=== PATIENT | female | born 1955 | race Caucasian/White ===

== ENCOUNTER 2018-09-21 17:58 | Inpatient (IN) | payer MEDICARE, OTHER ==
[~2018-09-21] VITALS: Ht 167.6 cm; Wt 90.8 kg
[~2018-09-21 17:58] MED LIST: ALBUTEROL INHALER; ASPI81TA45 PO; CARV3.122 PO; CEFD300C37 PO; DOXY100C15 PO; DOXY100T PO; ETOMIDATE 20 MG/10 ML ONE; FURO20TA3 PO; IPRA3AMP30 NPPB; LISI2.5T PO; METH4TAB2 PO; MIDAZOLAM 1 MG/ML, 5ML ONE; PRED10TA PO; SIMV20TA3 PO; SPIR25TA5 PO; SUCCINYLCHOLINE 20 MG/ML, 10ML ONE; TIOT18CA INH; VECURONIUM 10 MG ONE
[2018-09-21] MEDS ORDERED: SODIUM CHLORIDE FLUSH 10ML SYR IVF ONE (18:30)
[2018-09-21] MEDS ORDERED: methylPREDNISolone SOD SUCC 125 MG/2 ML IVP ONE (18:30)
[2018-09-21] MEDS ORDERED: methylPREDNISolone SOD SUCC 125 MG/2 ML ONE (18:34)
[2018-09-21] MEDS ORDERED: ALBUTEROL SULFATE 2.5 MG/3 ML ONE (18:36)
[2018-09-21 18:46] LABS: BASOPHILS % (AUTO) 0 % (0-1); EOSINOPHILS # (AUTO) 0.19 x10^3/uL (0-0.4); EOSINOPHILS % (AUTO) 2 % (1-7); LYMPHOCYTES # (AUTO) 0.74 x10^3/uL (1-3.4); LYMPHOCYTES % (AUTO) 8 % (22-44); MD NO; MEAN CORPUSCULAR HGB CONC 31.7 g/dL (32.4-35.8); MEAN CORPUSCULAR VOLUME 91.4 fL (80-100); MEAN PLATELET VOLUME 8.7 fL (7.4-10.4); MONOCYTES # (AUTO) 1.01 x10^3/uL (0.2-0.8); MONOCYTES % (AUTO) 11 % (2-9); NEUTROPHILS # (AUTO) 7.35 x10^3/uL (1.8-6.8); NEUTROPHILS % (AUTO) 79 % (42-75); PLATELET COUNT 245 x10^3/uL (130-400); RED BLOOD COUNT 3.68 x10^6/uL (3.82-5.3)
[2018-09-21 18:53] LABS: ALBUMIN 2.5 g/dL (3.4-5.0); CALCIUM 8.8 mg/dL (8.5-10.1); CHLORIDE 93 mmol/L (98-107); INTERNATIONAL NORMALIZED RATIO 0.94 (0.93-1.1)
[2018-09-21] MEDS ORDERED: ALBUTEROL SULFATE 2.5 MG/3 ML NPPB PRN (19:00)
[2018-09-21] MEDS ORDERED: AZITHROMYCIN 500 MG in SODIUM CHLORIDE 0.9% 250 ML IVPB ONE (19:00)
[2018-09-21 19:04] LABS: ANION GAP 4 mmol/L (5-15)
[2018-09-21] MEDS ORDERED: CEFTRIAXONE PMX 1GM/50ML 50 ML ONE (19:09)
[2018-09-21 19:16] LABS: CREATININE 0.63 mg/dL (0.55-1.02); TROPONIN I < 0.015 ng/mL (0.000-0.045)
[2018-09-21] MEDS ORDERED: SODIUM CHLORIDE FLUSH 10ML SYR IVF PRN (19:30)
[2018-09-21] MEDS ORDERED: CEFTRIAXONE PMX 1GM/50ML 50 ML IV SCH (19:30)
[2018-09-21] MEDS ORDERED: ACETAMINOPHEN 325 MG TABLET PO PRN (20:00)
[2018-09-21] MEDS ORDERED: BISACODYL 10 MG SUPP PR PRN (20:00)
[2018-09-21] MEDS ORDERED: NICOTINE 14MG/24 HR PATCH.TD24 TD SCH (20:00)
[2018-09-21] MEDS: metFORMIN 500 MG TABLET PO SCH (20:00)
[2018-09-21] MEDS ORDERED: ONDANSETRON ODT 4 MG PO PRN (20:00)
[2018-09-21 20:47] LABS: HEMOGLOBIN A1C 6.7 % (4.2-6.3)
[2018-09-21] MEDS ORDERED: INSULIN LISPRO 100 UNITS/ML, PEN SQ-INSULIN SCH (21:00)
[2018-09-21] MEDS ORDERED: CARVEDILOL 3.125 MG TABLET PO SCH (21:00)
[2018-09-21] MEDS: SIMVASTATIN 20 MG TABLET PO SCH (21:51)
[2018-09-21] MEDS: SODIUM CHLORIDE FLUSH 10ML SYR IVF SCH (21:52)
[2018-09-21] MEDS: HEPARIN 5,000 UNITS/ML, 1ML SQ SCH (21:52)
[2018-09-21] MEDS ORDERED: PROPOFOL 100 ML IV ONE (22:01)
[2018-09-21] MEDS ORDERED: FENTANYL PF 100 MCG/2ML ONE (22:07)
[2018-09-21] MEDS ORDERED: VECURONIUM 10 MG ONE (22:14)
[2018-09-21] MEDS: DOXYCYCLINE 100 MG in DEXTROSE 5% 250 ML IV SCH (22:59)
[2018-09-22] VITALS: BP 107/62
[2018-09-22] MEDS: IPRATROPIUM 0.5 MG/2.5 ML INHA HHN SCH ×2 (00:26→02:10)
[2018-09-22] MEDS: methylPREDNISolone SOD SUCC 125 MG/2 ML IVPush SCH ×4 (00:46→17:39)
[2018-09-22] MEDS ORDERED: methylPREDNISolone SOD SUCC 125 MG/2 ML IVPush ONE (02:00)
[2018-09-22] MEDS ORDERED: SODIUM CHLORIDE 0.9% 1,000ML IVBOLUS ONE ×2 (02:00)
[2018-09-22] MEDS ORDERED: ALBUMIN HUMAN 25% 100 ML IV ONE (02:00)
[2018-09-22 03:58] LABS: MICROSCOPIC INDICATED
[2018-09-22 04:08] LABS: AMPHETAMINE SCREEN, URINE Positive (Negative); BARBITURATE SCREEN, URINE Negative (Negative); BENZODIAZEPINE SCREEN, URINE Positive (Negative); CANNABINOID SCREEN, URINE Positive (Negative); COCAINE SCREEN, URINE Negative (Negative); METHADONE SCREEN, URINE Negative (Negative); OPIATE SCREEN, URINE Negative (Negative)
[2018-09-22 04:16] LABS: RAPID INFLUENZA A Negative (Negative); RAPID INFLUENZA B Negative (Negative)
[2018-09-22] MEDS: HEPARIN 5,000 UNITS/ML, 1ML SQ SCH (05:07)
[2018-09-22] MEDS: ASPIRIN 81 MG TABLET EC PO SCH (05:08)
[2018-09-22] MEDS: PROPOFOL 100 ML IV PRN ×3 (05:11→17:39)
[2018-09-22] MEDS ORDERED: INSULIN LISPRO 100 UNITS/ML, PEN SQ-INSULIN SCH (06:00)
[2018-09-22 06:16] LABS: BASOPHILS # (AUTO) 0.01 x10^3/uL (0-0.1); BASOPHILS % (AUTO) 0 % (0-1); EOSINOPHILS % (AUTO) 0 % (1-7); LYMPHOCYTES % (AUTO) 5 % (22-44); MD NO; MEAN CORPUSCULAR HEMOGLOBIN 29.3 pg (27.0-34.8); MEAN CORPUSCULAR HGB CONC 32.4 g/dL (32.4-35.8); MEAN CORPUSCULAR VOLUME 90.4 fL (80-100); MEAN PLATELET VOLUME 8.7 fL (7.4-10.4); MONOCYTES # (AUTO) 0.14 x10^3/uL (0.2-0.8); MONOCYTES % (AUTO) 2 % (2-9); NEUTROPHILS # (AUTO) 5.59 x10^3/uL (1.8-6.8); NEUTROPHILS % (AUTO) 93 % (42-75); PLATELET COUNT 215 x10^3/uL (130-400); RED BLOOD COUNT 3.35 x10^6/uL (3.82-5.3)
[2018-09-22] MEDS ORDERED: ALBUTEROL/IPRATROPIUM 2.5MG/0.5MG, 3 ML ONE (06:21)
[2018-09-22 06:28] LABS: ALANINE AMINOTRANSFERASE 17 U/L (12-78); ALBUMIN 2.5 g/dL (3.4-5.0); ANION GAP 6 mmol/L (5-15); CALCIUM 8.6 mg/dL (8.5-10.1); CHLORIDE 97 mmol/L (98-107); CREATININE 0.72 mg/dL (0.55-1.02)
[2018-09-22] MEDS: ALBUTEROL/IPRATROPIUM 2.5MG/0.5MG, 3 ML NPPB SCH ×5 (06:28→22:10)
[2018-09-22 06:30] LABS: ALKALINE PHOSPHATASE 82 U/L (45-117); BILIRUBIN,TOTAL 0.3 mg/dL (0.2-1.0); TOTAL PROTEIN 6.3 g/dL (6.4-8.2); TRIGLYCERIDES 57 mg/dL (50-200)
[2018-09-22 06:34] LABS: TROPONIN I < 0.015 ng/mL (0.000-0.045)
[2018-09-22] MEDS ORDERED: SPIRONOLACTONE 25 MG TABLET PO SCH (09:00)
[2018-09-22] MEDS ORDERED: FUROSEMIDE 20 MG/2 ML IV ONE (09:00)
[2018-09-22] MEDS: SODIUM CHLORIDE FLUSH 10ML SYR IVF SCH ×2 (09:00→21:20)
[2018-09-22] MEDS: INSULIN LISPRO 100 UNITS/ML, PEN SQ-INSULIN SCH ×4 (10:50→21:21)
[2018-09-22] MEDS: metFORMIN 500 MG TABLET PO SCH ×2 (10:50→21:19)
[2018-09-22] MEDS: SENNA/DOCUSATE TABLET PO SCH (10:50)
[2018-09-22] MEDS: INSULIN GLARGINE 100 UNITS/ML, PEN SQ-INSULIN SCH ×2 (10:51→21:22)
[2018-09-22] MEDS: DOXYCYCLINE 100 MG in DEXTROSE 5% 250 ML IV SCH ×2 (10:53→19:44)
[2018-09-22] MEDS: CEFTRIAXONE PMX 1GM/50ML 50 ML IV SCH (19:44)
[2018-09-22] MEDS: SIMVASTATIN 20 MG TABLET PO SCH (21:20)
[2018-09-23] MEDS: methylPREDNISolone SOD SUCC 125 MG/2 ML IVPush SCH ×4 (01:08→16:39)
[2018-09-23] MEDS: ALBUTEROL/IPRATROPIUM 2.5MG/0.5MG, 3 ML NPPB SCH ×6 (02:25→22:20)
[2018-09-23] MEDS: INSULIN LISPRO 100 UNITS/ML, PEN SQ-INSULIN SCH ×4 (02:57→22:10)
[2018-09-23] MEDS: PROPOFOL 100 ML IV PRN (03:35)
[2018-09-23] MEDS: ASPIRIN 81 MG TABLET EC PO SCH (05:16)
[2018-09-23 05:30] VITALS: BP 110/65
[2018-09-23 06:28] LABS: ALANINE AMINOTRANSFERASE 13 U/L (12-78); ALBUMIN 2.3 g/dL (3.4-5.0); ANION GAP 8 mmol/L (5-15); CALCIUM 8.9 mg/dL (8.5-10.1); CHLORIDE 98 mmol/L (98-107); CREATININE 0.94 mg/dL (0.55-1.02)
[2018-09-23 06:29] LABS: ALKALINE PHOSPHATASE 74 U/L (45-117); BILIRUBIN,TOTAL 0.3 mg/dL (0.2-1.0); TOTAL PROTEIN 6.1 g/dL (6.4-8.2)
[2018-09-23] MEDS: DOXYCYCLINE 100 MG in DEXTROSE 5% 250 ML IV SCH ×2 (08:40→22:09)
[2018-09-23] MEDS: SENNA/DOCUSATE TABLET PO SCH (09:02)
[2018-09-23] MEDS: metFORMIN 500 MG TABLET PO SCH ×2 (09:02→22:09)
[2018-09-23] MEDS: INSULIN GLARGINE 100 UNITS/ML, PEN SQ-INSULIN SCH ×2 (09:02→22:11)
[2018-09-23] MEDS: RISPERIDONE 1 MG TABLET PO SCH ×2 (09:05→22:10)
[2018-09-23] MEDS: SODIUM CHLORIDE FLUSH 10ML SYR IVF SCH ×2 (11:19→22:09)
[2018-09-23] MEDS: POTASSIUM CHLORIDE 10% 40 MEQ/30 ML UDC PO SCH ×2 (16:39→22:10)
[2018-09-23] MEDS: FUROSEMIDE 20 MG/2 ML IV SCH (16:39)
[2018-09-23] MEDS ORDERED: POTASSIUM CHLORIDE 20 MEQ TAB.ER.PRT PO SCH (17:00)
[2018-09-23] MEDS: CEFTRIAXONE PMX 1GM/50ML 50 ML IV SCH (19:22)
[2018-09-23] MEDS: SIMVASTATIN 20 MG TABLET PO SCH (22:09)
[2018-09-24] MEDS: methylPREDNISolone SOD SUCC 125 MG/2 ML IVPush SCH ×4 (01:38→20:53)
[2018-09-24] MEDS: ALBUTEROL/IPRATROPIUM 2.5MG/0.5MG, 3 ML NPPB SCH ×6 (02:25→22:27)
[2018-09-24] MEDS: INSULIN LISPRO 100 UNITS/ML, PEN SQ-INSULIN SCH ×4 (03:17→21:00)
[2018-09-24 04:36] VITALS: BP 97/53
[2018-09-24] MEDS: MIDAZOLAM HCL 50 MG in SODIUM CHLORIDE 0.9% 240 ML IV PRN ×2 (04:48→17:18)
[2018-09-24 05:27] LABS: BASOPHILS % (AUTO) 0 % (0-1); EOSINOPHILS # (AUTO) 0.03 x10^3/uL (0-0.4); EOSINOPHILS % (AUTO) 1 % (1-7); LYMPHOCYTES # (AUTO) 0.46 x10^3/uL (1-3.4); LYMPHOCYTES % (AUTO) 7 % (22-44); MD NO; MEAN CORPUSCULAR HEMOGLOBIN 29.3 pg (27.0-34.8); MEAN CORPUSCULAR HGB CONC 32.7 g/dL (32.4-35.8); MEAN CORPUSCULAR VOLUME 89.6 fL (80-100); MEAN PLATELET VOLUME 8.3 fL (7.4-10.4); MONOCYTES # (AUTO) 0.55 x10^3/uL (0.2-0.8); MONOCYTES % (AUTO) 8 % (2-9); NEUTROPHILS # (AUTO) 5.99 x10^3/uL (1.8-6.8); NEUTROPHILS % (AUTO) 85 % (42-75); PLATELET COUNT 305 x10^3/uL (130-400); RED BLOOD COUNT 3.31 x10^6/uL (3.82-5.3); RED CELL DISTRIBUTION WIDTH 14.1 % (9.6-15.2)
[2018-09-24 05:37] LABS: ANION GAP 3 mmol/L (5-15); CALCIUM 8.4 mg/dL (8.5-10.1); CHLORIDE 103 mmol/L (98-107); CREATININE 0.87 mg/dL (0.55-1.02)
[2018-09-24] MEDS: ASPIRIN 81 MG TABLET EC PO SCH (05:43)
[2018-09-24] MEDS: FUROSEMIDE 20 MG/2 ML IV SCH ×2 (07:30→15:57)
[2018-09-24] MEDS: SENNA/DOCUSATE TABLET PO SCH (07:57)
[2018-09-24] MEDS: POTASSIUM CHLORIDE 10% 40 MEQ/30 ML UDC PO SCH (07:57)
[2018-09-24] MEDS: RISPERIDONE 1 MG TABLET PO SCH ×2 (07:58→20:56)
[2018-09-24] MEDS: metFORMIN 500 MG TABLET PO SCH ×2 (07:58→20:55)
[2018-09-24] MEDS: SODIUM CHLORIDE FLUSH 10ML SYR IVF SCH ×2 (07:59→20:54)
[2018-09-24] MEDS: INSULIN GLARGINE 100 UNITS/ML, PEN SQ-INSULIN SCH ×2 (09:26→20:59)
[2018-09-24] MEDS: DOXYCYCLINE 100 MG in DEXTROSE 5% 250 ML IV SCH ×2 (09:29→21:33)
[2018-09-24] MEDS: CEFTRIAXONE PMX 1GM/50ML 50 ML IV SCH (20:51)
[2018-09-24] MEDS: SIMVASTATIN 20 MG TABLET PO SCH (20:56)
[2018-09-25] MEDS: ALBUTEROL/IPRATROPIUM 2.5MG/0.5MG, 3 ML NPPB SCH ×6 (02:26→22:25)
[2018-09-25] MEDS: methylPREDNISolone SOD SUCC 125 MG/2 ML IVPush SCH ×3 (03:21→20:33)
[2018-09-25] MEDS: INSULIN LISPRO 100 UNITS/ML, PEN SQ-INSULIN SCH ×4 (03:21→20:32)
[2018-09-25 04:00] VITALS: BP 89/44
[2018-09-25 04:13] LABS: BASOPHILS # (AUTO) 0.03 x10^3/uL (0-0.1); BASOPHILS % (AUTO) 0 % (0-1); EOSINOPHILS # (AUTO) 0.11 x10^3/uL (0-0.4); EOSINOPHILS % (AUTO) 1 % (1-7); LYMPHOCYTES # (AUTO) 0.63 x10^3/uL (1-3.4); LYMPHOCYTES % (AUTO) 8 % (22-44); MD NO; MEAN CORPUSCULAR HEMOGLOBIN 29.2 pg (27.0-34.8); MEAN CORPUSCULAR HGB CONC 32.7 g/dL (32.4-35.8); MEAN CORPUSCULAR VOLUME 89.4 fL (80-100); MEAN PLATELET VOLUME 8.1 fL (7.4-10.4); MONOCYTES # (AUTO) 0.56 x10^3/uL (0.2-0.8); MONOCYTES % (AUTO) 7 % (2-9); NEUTROPHILS # (AUTO) 7.09 x10^3/uL (1.8-6.8); NEUTROPHILS % (AUTO) 84 % (42-75); PLATELET COUNT 317 x10^3/uL (130-400); RED BLOOD COUNT 3.29 x10^6/uL (3.82-5.3); RED CELL DISTRIBUTION WIDTH 14.1 % (9.6-15.2)
[2018-09-25 04:20] LABS: ALANINE AMINOTRANSFERASE 16 U/L (12-78); ALBUMIN 2.2 g/dL (3.4-5.0); ANION GAP 6 mmol/L (5-15); CALCIUM 8.3 mg/dL (8.5-10.1); CHLORIDE 101 mmol/L (98-107); CREATININE 0.81 mg/dL (0.55-1.02)
[2018-09-25 04:22] LABS: ALKALINE PHOSPHATASE 63 U/L (45-117); BILIRUBIN,TOTAL 0.2 mg/dL (0.2-1.0); TOTAL PROTEIN 5.7 g/dL (6.4-8.2)
[2018-09-25] MEDS: MIDAZOLAM HCL 50 MG in SODIUM CHLORIDE 0.9% 240 ML IV PRN ×2 (05:06→16:20)
[2018-09-25] MEDS: ASPIRIN 81 MG TABLET EC PO SCH (06:06)
[2018-09-25] MEDS: SODIUM CHLORIDE FLUSH 10ML SYR IVF SCH ×2 (07:43→20:33)
[2018-09-25] MEDS: RISPERIDONE 1 MG TABLET PO SCH ×2 (07:45→20:28)
[2018-09-25] MEDS: SENNA/DOCUSATE TABLET PO SCH (07:46)
[2018-09-25] MEDS: metFORMIN 500 MG TABLET PO SCH ×2 (07:46→20:28)
[2018-09-25] MEDS: FUROSEMIDE 20 MG/2 ML IV SCH ×2 (09:12→16:22)
[2018-09-25] MEDS: DOXYCYCLINE 100 MG in DEXTROSE 5% 250 ML IV SCH ×2 (09:12→20:35)
[2018-09-25] MEDS: INSULIN GLARGINE 100 UNITS/ML, PEN SQ-INSULIN SCH ×2 (09:13→20:32)
[2018-09-25] MEDS: SIMVASTATIN 20 MG TABLET PO SCH (20:27)
[2018-09-25] MEDS: CEFTRIAXONE PMX 1GM/50ML 50 ML IV SCH (21:38)
[2018-09-26] MEDS: MIDAZOLAM HCL 50 MG in SODIUM CHLORIDE 0.9% 240 ML IV PRN ×3 (01:39→22:29)
[2018-09-26] MEDS: ALBUTEROL/IPRATROPIUM 2.5MG/0.5MG, 3 ML NPPB SCH ×6 (02:15→22:46)
[2018-09-26] MEDS: INSULIN LISPRO 100 UNITS/ML, PEN SQ-INSULIN SCH ×4 (02:50→21:28)
[2018-09-26 04:00] VITALS: BP 90/44
[2018-09-26 04:23] LABS: BASOPHILS # (AUTO) 0.03 x10^3/uL (0-0.1); BASOPHILS % (AUTO) 0 % (0-1); EOSINOPHILS % (AUTO) 0 % (1-7); LYMPHOCYTES # (AUTO) 0.76 x10^3/uL (1-3.4); LYMPHOCYTES % (AUTO) 8 % (22-44); MD NO; MEAN CORPUSCULAR HEMOGLOBIN 29.1 pg (27.0-34.8); MEAN CORPUSCULAR HGB CONC 32.6 g/dL (32.4-35.8); MEAN CORPUSCULAR VOLUME 89.4 fL (80-100); MONOCYTES # (AUTO) 0.31 x10^3/uL (0.2-0.8); MONOCYTES % (AUTO) 3 % (2-9); NEUTROPHILS # (AUTO) 8.15 x10^3/uL (1.8-6.8); NEUTROPHILS % (AUTO) 88 % (42-75); PLATELET COUNT 311 x10^3/uL (130-400); RED BLOOD COUNT 3.32 x10^6/uL (3.82-5.3); RED CELL DISTRIBUTION WIDTH 14.1 % (9.6-15.2)
[2018-09-26 04:35] LABS: ALBUMIN 2.4 g/dL (3.4-5.0); ANION GAP 7 mmol/L (5-15); CALCIUM 7.9 mg/dL (8.5-10.1); CHLORIDE 98 mmol/L (98-107)
[2018-09-26 04:38] LABS: ALANINE AMINOTRANSFERASE 19 U/L (12-78); ALKALINE PHOSPHATASE 61 U/L (45-117); BILIRUBIN,TOTAL 0.2 mg/dL (0.2-1.0); CREATININE 0.85 mg/dL (0.55-1.02); TOTAL PROTEIN 5.9 g/dL (6.4-8.2)
[2018-09-26] MEDS: ASPIRIN 81 MG TABLET EC PO SCH (05:02)
[2018-09-26] MEDS ORDERED: LIDOCAINE 1%, 2ML ENDO PRN (05:30)
[2018-09-26] MEDS: DOXYCYCLINE 100 MG in DEXTROSE 5% 250 ML IV SCH ×2 (08:19→22:30)
[2018-09-26] MEDS: methylPREDNISolone SOD SUCC 125 MG/2 ML IVPush SCH ×2 (08:19→21:24)
[2018-09-26] MEDS: FUROSEMIDE 20 MG/2 ML IV SCH ×3 (08:19→16:28)
[2018-09-26] MEDS: SODIUM CHLORIDE FLUSH 10ML SYR IVF SCH ×2 (08:19→21:22)
[2018-09-26] MEDS: metFORMIN 500 MG TABLET PO SCH ×2 (08:20→21:27)
[2018-09-26] MEDS: RISPERIDONE 1 MG TABLET PO SCH ×2 (08:20→21:27)
[2018-09-26] MEDS: SENNA/DOCUSATE TABLET PO SCH (08:20)
[2018-09-26] MEDS: INSULIN GLARGINE 100 UNITS/ML, PEN SQ-INSULIN SCH ×2 (08:21→21:30)
[2018-09-26] MEDS: ENOXAPARIN 40 MG/0.4 ML SQ SCH (10:11)
[2018-09-26] MEDS: FAMOTIDINE 20 MG/2 ML IVPush SCH ×2 (10:11→21:23)
[2018-09-26] MEDS: CEFTRIAXONE PMX 1GM/50ML 50 ML IV SCH (21:22)
[2018-09-26] MEDS: SIMVASTATIN 20 MG TABLET PO SCH (21:28)
[2018-09-27] MEDS: ALBUTEROL/IPRATROPIUM 2.5MG/0.5MG, 3 ML NPPB SCH ×6 (03:30→22:29)
[2018-09-27] MEDS: INSULIN LISPRO 100 UNITS/ML, PEN SQ-INSULIN SCH ×4 (03:40→21:21)
[2018-09-27] MEDS: MIDAZOLAM HCL 50 MG in SODIUM CHLORIDE 0.9% 240 ML IV PRN ×4 (03:55→22:40)
[2018-09-27 04:00] VITALS: BP 100/54
[2018-09-27 04:23] LABS: FIO2 65 %
[2018-09-27 04:24] LABS: BASOPHILS # (AUTO) 0.08 x10^3/uL (0-0.1); BASOPHILS % (AUTO) 1 % (0-1); EOSINOPHILS % (AUTO) 0 % (1-7); LYMPHOCYTES # (AUTO) 0.61 x10^3/uL (1-3.4); LYMPHOCYTES % (AUTO) 6 % (22-44); MD NO; MEAN CORPUSCULAR HEMOGLOBIN 28.9 pg (27.0-34.8); MEAN CORPUSCULAR HGB CONC 32.6 g/dL (32.4-35.8); MEAN CORPUSCULAR VOLUME 88.8 fL (80-100); MEAN PLATELET VOLUME 7.6 fL (7.4-10.4); MONOCYTES # (AUTO) 0.07 x10^3/uL (0.2-0.8); MONOCYTES % (AUTO) 1 % (2-9); NEUTROPHILS # (AUTO) 10.35 x10^3/uL (1.8-6.8); NEUTROPHILS % (AUTO) 93 % (42-75); PLATELET COUNT 300 x10^3/uL (130-400); RED BLOOD COUNT 3.38 x10^6/uL (3.82-5.3); RED CELL DISTRIBUTION WIDTH 13.7 % (9.6-15.2)
[2018-09-27 04:35] LABS: ANION GAP 6 mmol/L (5-15); CALCIUM 8.2 mg/dL (8.5-10.1); CHLORIDE 98 mmol/L (98-107); CREATININE 0.82 mg/dL (0.55-1.02)
[2018-09-27] MEDS: ASPIRIN 81 MG TABLET EC PO SCH (06:01)
[2018-09-27] MEDS: FAMOTIDINE 20 MG/2 ML IVPush SCH ×2 (08:38→21:14)
[2018-09-27] MEDS: SODIUM CHLORIDE FLUSH 10ML SYR IVF SCH ×2 (08:38→21:13)
[2018-09-27] MEDS: SENNA/DOCUSATE TABLET PO SCH (08:38)
[2018-09-27] MEDS: methylPREDNISolone SOD SUCC 125 MG/2 ML IVPush SCH (08:39)
[2018-09-27] MEDS: FUROSEMIDE 20 MG/2 ML IV SCH ×2 (08:39→09:04)
[2018-09-27] MEDS: INSULIN GLARGINE 100 UNITS/ML, PEN SQ-INSULIN SCH ×2 (08:41→21:21)
[2018-09-27] MEDS: ENOXAPARIN 40 MG/0.4 ML SQ SCH (08:41)
[2018-09-27] MEDS ORDERED: QUETIAPINE 25MG TABLET PO SCH (09:00)
[2018-09-27] MEDS: metFORMIN 500 MG TABLET PO SCH ×2 (11:38→21:14)
[2018-09-27] MEDS: QUETIAPINE 25MG TABLET PO SCH ×2 (17:51→21:16)
[2018-09-27] MEDS: POLYETHYLENE GLYCOL 17 GM PACKET PO PRN ×2 (18:03→21:21)
[2018-09-27] MEDS ORDERED: DOCUSATE 100 MG CAPSULE PO SCH (21:00)
[2018-09-27] MEDS: CEFTRIAXONE PMX 1GM/50ML 50 ML IV SCH (21:12)
[2018-09-27] MEDS: DOCUSATE 50 MG/5 ML, 10ML UDC PO SCH (21:14)
[2018-09-27] MEDS: methylPREDNISolone SOD SUCC 40 MG/ML IVPush SCH (21:14)
[2018-09-27] MEDS: SIMVASTATIN 20 MG TABLET PO SCH (21:15)
[2018-09-28] MEDS: ALBUTEROL/IPRATROPIUM 2.5MG/0.5MG, 3 ML NPPB SCH ×6 (02:28→22:30)
[2018-09-28] MEDS: INSULIN LISPRO 100 UNITS/ML, PEN SQ-INSULIN SCH ×4 (03:02→21:00)
[2018-09-28] MEDS: MIDAZOLAM HCL 50 MG in SODIUM CHLORIDE 0.9% 240 ML IV PRN (03:56)
[2018-09-28 04:00] VITALS: BP 95/45
[2018-09-28] MEDS: ASPIRIN 81 MG TABLET EC PO SCH (06:05)
[2018-09-28] MEDS: FUROSEMIDE 20 MG/2 ML IV SCH (07:30)
[2018-09-28 07:39] LABS: BASOPHILS # (AUTO) 0.02 x10^3/uL (0-0.1); BASOPHILS % (AUTO) 0 % (0-1); EOSINOPHILS # (AUTO) 0.01 x10^3/uL (0-0.4); EOSINOPHILS % (AUTO) 0 % (1-7); LYMPHOCYTES # (AUTO) 0.67 x10^3/uL (1-3.4); LYMPHOCYTES % (AUTO) 7 % (22-44); MD NO; MEAN CORPUSCULAR HEMOGLOBIN 28.5 pg (27.0-34.8); MEAN CORPUSCULAR HGB CONC 31.6 g/dL (32.4-35.8); MEAN CORPUSCULAR VOLUME 90.3 fL (80-100); MEAN PLATELET VOLUME 7.2 fL (7.4-10.4); MONOCYTES # (AUTO) 0.19 x10^3/uL (0.2-0.8); MONOCYTES % (AUTO) 2 % (2-9); NEUTROPHILS # (AUTO) 9.02 x10^3/uL (1.8-6.8); NEUTROPHILS % (AUTO) 91 % (42-75); PLATELET COUNT 290 x10^3/uL (130-400); RED BLOOD COUNT 3.25 x10^6/uL (3.82-5.3); RED CELL DISTRIBUTION WIDTH 14.1 % (9.6-15.2)
[2018-09-28 08:08] LABS: ANION GAP 4 mmol/L (5-15); CALCIUM 8.1 mg/dL (8.5-10.1); CHLORIDE 103 mmol/L (98-107); CREATININE 0.65 mg/dL (0.55-1.02)
[2018-09-28] MEDS: DEXMEDETOMIDINE 1,000 MCG in SODIUM CHLORIDE 0.9% 240 ML IV PRN ×2 (09:08→23:58)
[2018-09-28] MEDS: SODIUM CHLORIDE FLUSH 10ML SYR IVF SCH ×2 (09:50→20:51)
[2018-09-28] MEDS: INSULIN GLARGINE 100 UNITS/ML, PEN SQ-INSULIN SCH ×2 (09:51→21:00)
[2018-09-28] MEDS: FAMOTIDINE 20 MG/2 ML IVPush SCH ×2 (09:57→20:51)
[2018-09-28] MEDS: ENOXAPARIN 40 MG/0.4 ML SQ SCH (09:57)
[2018-09-28] MEDS: SENNA/DOCUSATE TABLET PO SCH (09:58)
[2018-09-28] MEDS: DOCUSATE 50 MG/5 ML, 10ML UDC PO SCH ×2 (09:58→21:00)
[2018-09-28] MEDS: QUETIAPINE 25MG TABLET PO SCH ×3 (09:58→20:52)
[2018-09-28] MEDS: methylPREDNISolone SOD SUCC 40 MG/ML IVPush SCH ×2 (09:58→20:51)
[2018-09-28] MEDS: metFORMIN 500 MG TABLET PO SCH ×2 (09:59→20:52)
[2018-09-28] MEDS ORDERED: ZIPRASIDONE 20 MG INJ IM PRN (19:30)
[2018-09-28] MEDS: SIMVASTATIN 20 MG TABLET PO SCH (20:52)
[2018-09-28] MEDS: CEFTRIAXONE PMX 1GM/50ML 50 ML IV SCH (20:59)
[2018-09-29] MEDS: INSULIN LISPRO 100 UNITS/ML, PEN SQ-INSULIN SCH ×4 (03:05→20:36)
[2018-09-29] MEDS: ALBUTEROL/IPRATROPIUM 2.5MG/0.5MG, 3 ML NPPB SCH ×6 (03:20→22:28)
[2018-09-29 04:56] VITALS: BP 109/58
[2018-09-29] MEDS: ASPIRIN 81 MG TABLET EC PO SCH (05:06)
[2018-09-29 05:30] LABS: BASOPHILS # (AUTO) 0.02 x10^3/uL (0-0.1); BASOPHILS % (AUTO) 0 % (0-1); EOSINOPHILS # (AUTO) 0.01 x10^3/uL (0-0.4); EOSINOPHILS % (AUTO) 0 % (1-7); LYMPHOCYTES # (AUTO) 0.56 x10^3/uL (1-3.4); LYMPHOCYTES % (AUTO) 6 % (22-44); MD NO; MEAN CORPUSCULAR HEMOGLOBIN 28.4 pg (27.0-34.8); MEAN CORPUSCULAR HGB CONC 31.6 g/dL (32.4-35.8); MEAN CORPUSCULAR VOLUME 90.1 fL (80-100); MEAN PLATELET VOLUME 8.3 fL (7.4-10.4); MONOCYTES # (AUTO) 0.23 x10^3/uL (0.2-0.8); MONOCYTES % (AUTO) 2 % (2-9); NEUTROPHILS # (AUTO) 9.49 x10^3/uL (1.8-6.8); NEUTROPHILS % (AUTO) 92 % (42-75); PLATELET COUNT 247 x10^3/uL (130-400); RED BLOOD COUNT 3.61 x10^6/uL (3.82-5.3); RED CELL DISTRIBUTION WIDTH 14.1 % (9.6-15.2)
[2018-09-29 05:41] LABS: ANION GAP 3 mmol/L (5-15); CALCIUM 8.4 mg/dL (8.5-10.1); CHLORIDE 105 mmol/L (98-107); CREATININE 0.71 mg/dL (0.55-1.02)
[2018-09-29] MEDS: DEXMEDETOMIDINE 1,000 MCG in SODIUM CHLORIDE 0.9% 240 ML IV PRN (07:29)
[2018-09-29] MEDS: SODIUM CHLORIDE FLUSH 10ML SYR IVF SCH ×2 (08:26→20:30)
[2018-09-29] MEDS: DOCUSATE 50 MG/5 ML, 10ML UDC PO SCH ×2 (08:26→20:29)
[2018-09-29] MEDS: SENNA/DOCUSATE TABLET PO SCH (08:26)
[2018-09-29] MEDS: ENOXAPARIN 40 MG/0.4 ML SQ SCH (08:27)
[2018-09-29] MEDS: QUETIAPINE 25MG TABLET PO SCH ×3 (08:27→20:30)
[2018-09-29] MEDS: metFORMIN 500 MG TABLET PO SCH ×2 (08:27→20:33)
[2018-09-29] MEDS: FAMOTIDINE 20 MG/2 ML IVPush SCH ×2 (08:37→20:29)
[2018-09-29] MEDS: methylPREDNISolone SOD SUCC 40 MG/ML IVPush SCH ×2 (08:38→20:29)
[2018-09-29] MEDS: INSULIN GLARGINE 100 UNITS/ML, PEN SQ-INSULIN SCH ×2 (08:38→20:36)
[2018-09-29] MEDS: CEFTRIAXONE PMX 1GM/50ML 50 ML IV SCH (20:29)
[2018-09-29] MEDS: SIMVASTATIN 20 MG TABLET PO SCH (20:35)
[2018-09-29] MEDS ORDERED: DEXTROSE 50%, 50ML SYRINGE IVPush ONE (21:00)
[2018-09-30] MEDS: INSULIN LISPRO 100 UNITS/ML, PEN SQ-INSULIN SCH ×2 (03:27→08:57)
[2018-09-30 04:33] LABS: BASOPHILS # (AUTO) 0.07 x10^3/uL (0-0.1); BASOPHILS % (AUTO) 1 % (0-1); EOSINOPHILS # (AUTO) 0.44 x10^3/uL (0-0.4); EOSINOPHILS % (AUTO) 4 % (1-7); LYMPHOCYTES # (AUTO) 1.17 x10^3/uL (1-3.4); LYMPHOCYTES % (AUTO) 10 % (22-44); MD NO; MEAN CORPUSCULAR HEMOGLOBIN 29.1 pg (27.0-34.8); MEAN CORPUSCULAR HGB CONC 32.7 g/dL (32.4-35.8); MEAN PLATELET VOLUME 8.6 fL (7.4-10.4); MONOCYTES # (AUTO) 0.33 x10^3/uL (0.2-0.8); MONOCYTES % (AUTO) 3 % (2-9); NEUTROPHILS # (AUTO) 10.02 x10^3/uL (1.8-6.8); NEUTROPHILS % (AUTO) 83 % (42-75); PLATELET COUNT 243 x10^3/uL (130-400); RED BLOOD COUNT 3.87 x10^6/uL (3.82-5.3)
[2018-09-30 04:36] VITALS: BP 112/52
[2018-09-30 04:46] LABS: ANION GAP 4 mmol/L (5-15); CALCIUM 8.4 mg/dL (8.5-10.1); CHLORIDE 102 mmol/L (98-107)
[2018-09-30] MEDS: ALBUTEROL/IPRATROPIUM 2.5MG/0.5MG, 3 ML NPPB SCH ×5 (06:00→22:00)
[2018-09-30] MEDS: INSULIN GLARGINE 100 UNITS/ML, PEN SQ-INSULIN SCH (08:58)
[2018-09-30] MEDS: ASPIRIN 81 MG TABLET EC PO SCH (09:05)
[2018-09-30] MEDS: DOCUSATE 50 MG/5 ML, 10ML UDC PO SCH ×2 (09:05→20:03)
[2018-09-30] MEDS: FAMOTIDINE 20 MG/2 ML IVPush SCH (09:05)
[2018-09-30] MEDS: ENOXAPARIN 40 MG/0.4 ML SQ SCH (09:05)
[2018-09-30] MEDS: SENNA/DOCUSATE TABLET PO SCH (09:05)
[2018-09-30] MEDS: SODIUM CHLORIDE FLUSH 10ML SYR IVF SCH ×2 (09:06→20:03)
[2018-09-30] MEDS: QUETIAPINE 25MG TABLET PO SCH (09:06)
[2018-09-30 14:26] VITALS: BP 113/67
[2018-09-30 19:48] VITALS: BP 127/66
[2018-09-30] MEDS: CEFTRIAXONE PMX 1GM/50ML 50 ML IV SCH (20:02)
[2018-09-30] MEDS: SIMVASTATIN 20 MG TABLET PO SCH (20:03)
[2018-10-01 00:30] VITALS: BP 137/74
[2018-10-01 05:50] LABS: ANION GAP 5 mmol/L (5-15); CALCIUM 7.7 mg/dL (8.5-10.1); CHLORIDE 102 mmol/L (98-107)
[2018-10-01 05:53] LABS: CREATININE 0.58 mg/dL (0.55-1.02)
[2018-10-01] MEDS: ASPIRIN 81 MG TABLET EC PO SCH (06:05)
[2018-10-01] MEDS: ALBUTEROL/IPRATROPIUM 2.5MG/0.5MG, 3 ML NPPB SCH (07:15)
[2018-10-01 07:31] VITALS: BP 117/72
[2018-10-01] MEDS: DOCUSATE 50 MG/5 ML, 10ML UDC PO SCH (09:00)
[2018-10-01] MEDS: SENNA/DOCUSATE TABLET PO SCH (09:00)
[2018-10-01] MEDS: SODIUM CHLORIDE FLUSH 10ML SYR IVF SCH (09:00)
[2018-10-01] MEDS: ENOXAPARIN 40 MG/0.4 ML SQ SCH (10:00)
[2018-10-01] MEDS ORDERED: PRED10TA14 PO (10:59)
[2018-10-01] MEDS ORDERED: TIOT18CA INH (10:59)
[2018-10-01] MEDS ORDERED: ALBU90AE INH (10:59)
[2018-10-01] MEDS ORDERED: ALBUTEROL/IPRATROPIUM 2.5MG/0.5MG, 3 ML NPPB SCH (11:00)
[2018-10-01] MEDS ORDERED: METF500T PO (11:04)
[2018-10-01] MEDS ORDERED: CEFD300C37 PO (11:04)
[2018-10-01] MEDS ORDERED: LISI2.5T PO (12:27)
[2018-10-01 13:54] VITALS: BP 117/65
== END 2018-10-01 17:26 | disposition home or self-care (01) | DRG 853 ==
LOC: ED 18:43 → EDIP 19:32 → 4EST 21:09 → CCU 21:20 → 3NE 09-30 11:59
PROVIDERS: ADMIT Internal Medicine; ATTEND Internal Medicine
PROC: 0B9M8ZX Drainage of Bilateral Lungs, Via Natural or Artificial Opening Endoscopic, Diagnostic (ICD-10-PCS; 2018-09-21)
PROC: 0BH17EZ Insertion of Endotracheal Airway into Trachea, Via Natural or Artificial Opening (ICD-10-PCS; principal; 2018-09-22)
PROC: 5A1955Z Respiratory Ventilation, Greater than 96 Consecutive Hours (ICD-10-PCS; 2018-09-22)
PROC: 0T9B70Z Drainage of Bladder with Drainage Device, Via Natural or Artificial Opening (ICD-10-PCS; 2018-09-22)
DX: A40.3 Sepsis due to Streptococcus pneumoniae (principal); J96.21 Acute and chronic respiratory failure with hypoxia; J15.9 Unspecified bacterial pneumonia; E43 Unspecified severe protein-calorie malnutrition; J96.22 Acute and chronic respiratory failure with hypercapnia; J15.4 Pneumonia due to other streptococci; R65.21 Severe sepsis with septic shock; J44.0 Chronic obstructive pulmonary disease with (acute) lower respiratory infection; I50.22 Chronic systolic (congestive) heart failure; Z99.11 Dependence on respirator [ventilator] status; E87.4 Mixed disorder of acid-base balance; I42.9 Cardiomyopathy, unspecified; J44.1 Chronic obstructive pulmonary disease with (acute) exacerbation; J94.2 Hemothorax; K56.0 Paralytic ileus; Q21.1 Atrial septal defect; C55 Malignant neoplasm of uterus, part unspecified; Z68.32 Body mass index [BMI] 32.0-32.9, adult; D64.9 Anemia, unspecified; E11.649 Type 2 diabetes mellitus with hypoglycemia without coma; E11.65 Type 2 diabetes mellitus with hyperglycemia; E66.9 Obesity, unspecified; E86.9 Volume depletion, unspecified; F12.90 Cannabis use, unspecified, uncomplicated; F15.90 Other stimulant use, unspecified, uncomplicated; F17.210 Nicotine dependence, cigarettes, uncomplicated; I11.0 Hypertensive heart disease with heart failure; I25.10 Atherosclerotic heart disease of native coronary artery without angina pectoris; I95.2 Hypotension due to drugs; T17.990A Other foreign object in respiratory tract, part unspecified in causing asphyxiation, initial encounter; T42.75XA Adverse effect of unspecified antiepileptic and sedative-hypnotic drugs, initial encounter; Z82.49 Family history of ischemic heart disease and other diseases of the circulatory system; Z85.42 Personal history of malignant neoplasm of other parts of uterus; Z90.710 Acquired absence of both cervix and uterus; Z93.0 Tracheostomy status; Z99.81 Dependence on supplemental oxygen; Z88.8 Allergy status to other drugs, medicaments and biological substances
CPT/HCPCS: 31624; 36415; 36600; 71045; 71250; 74018; 74176; 80048; 80053; 80307; 81001; 82040; 82533; 82803; 82962; 83036; 83605; 83735; 83880; 84100; 84478; 84484; 85025; 85610; 85730; 87040; 87070; 87077; 87081; 87102; 87181; 87184; 87205; 87400; 93005; 93306; 94002; 94003; 94150; 94640; 96374; 99291; G0378; J0456; J0696; J1644; J1650; J2250; J2704; J7060; J7613; J7620; J7644; P9047; J0330; J1815; J1940; J2920; J2930; J3490; J7030; J7050; J7512

== ENCOUNTER 2019-10-02 14:10 | Emergency (ER) | payer MEDICARE ==
[~2019-10-02] VITALS: Ht 165.1 cm; Wt 91.0 kg
[~2019-10-02 14:10] MED LIST changes: +ALBU90AE INH; -ETOMIDATE 20 MG/10 ML ONE; +METF500T PO; -MIDAZOLAM 1 MG/ML, 5ML ONE; +PRED10TA14 PO; -SUCCINYLCHOLINE 20 MG/ML, 10ML ONE; -VECURONIUM 10 MG ONE
--- NOTE | 2019-10-02 14:38 | NUR ---
PT TO ROOM AT THIS TIME.
--- NOTE | 2019-10-02 14:55 | NUR ---
ERP TO THE BS IS ORTHOPNIC REFUSING TO GET ALL THE WAY IN BED 02 ON AND SATS AT 97%
[2019-10-02] MEDS ORDERED: SODIUM CHLORIDE FLUSH 10ML SYR IVF ONE (15:00)
[2019-10-02 15:41] LABS: BASOPHILS # (AUTO) 0.01 x10^3/uL (0-0.1); BASOPHILS % (AUTO) 0 % (0-1); EOSINOPHILS # (AUTO) 0.02 x10^3/uL (0-0.4); EOSINOPHILS % (AUTO) 0 % (1-7); LYMPHOCYTES # (AUTO) 0.53 x10^3/uL (1-3.4); LYMPHOCYTES % (AUTO) 10 % (22-44); MD NO; MEAN CORPUSCULAR HEMOGLOBIN 29.3 pg (27.0-34.8); MEAN CORPUSCULAR HGB CONC 31.6 g/dL (32.4-35.8); MEAN CORPUSCULAR VOLUME 92.6 fL (80-100); MEAN PLATELET VOLUME 7.8 fL (7.4-10.4); MONOCYTES # (AUTO) 0.27 x10^3/uL (0.2-0.8); MONOCYTES % (AUTO) 5 % (2-9); NEUTROPHILS # (AUTO) 4.71 x10^3/uL (1.8-6.8); NEUTROPHILS % (AUTO) 85 % (42-75); PLATELET COUNT 164 x10^3/uL (130-400); RED BLOOD COUNT 3.77 x10^6/uL (3.82-5.3); RED CELL DISTRIBUTION WIDTH 14.9 % (9.6-15.2)
[2019-10-02 15:50] LABS: ALANINE AMINOTRANSFERASE 51 U/L (12-78); ALBUMIN 3.2 g/dL (3.4-5.0); ANION GAP 2 mmol/L (5-15); CHLORIDE 91 mmol/L (98-107); CREATININE 0.85 mg/dL (0.55-1.02)
[2019-10-02 15:55] LABS: ALKALINE PHOSPHATASE 78 U/L (45-117); BILIRUBIN,TOTAL 0.2 mg/dL (0.2-1.0); TOTAL PROTEIN 6.7 g/dL (6.4-8.2); TROPONIN I < 0.015 ng/mL (0.000-0.045)
--- NOTE | 2019-10-02 16:25 | NUR ---
PT PLACED ON NC 5LPM CONTINUING TO MONITOR
[2019-10-02 16:32] VITALS: BP 128/79
--- NOTE | 2019-10-02 16:56 | NUR ---
SW IN TO SEE THE PT
--- NOTE | 2019-10-02 18:01 | NUR ---
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
== END 2019-10-02 18:14 | disposition home or self-care (01) ==
LOC: ED 17:20
DX: J43.9 Emphysema, unspecified (principal); I11.0 Hypertensive heart disease with heart failure; F17.200 Nicotine dependence, unspecified, uncomplicated
CPT/HCPCS: 36415; 71046; 80053; 83880; 84484; 85025; 93005; 99284